=== PATIENT | male | born 1970 | race Caucasian/White ===

== ENCOUNTER 2019-03-15 15:33 | Outpatient (CLI) | payer BC | END 2019-03-15 15:34 | disposition short-term general hospital (02) | LOC: EMS 15:33 | PROVIDERS: ATTEND Surgery | DX: S69.92XA Unspecified injury of left wrist, hand and finger(s), initial encounter (principal); M25.512 Pain in left shoulder; V49.40XA Driver injured in collision with unspecified motor vehicles in traffic accident, initial encounter; Y92.413 State road as the place of occurrence of the external cause | CPT/HCPCS: A0425; A0429 ==

== ENCOUNTER 2022-12-23 12:22 | Outpatient (CLI) | payer MEDICARE ==
--- NOTE | 2022-12-23 15:00 | XRAY Report ---
PROCEDURE: Chest 2 View X-Ray INDICATIONS: CHEST PAIN TECHNIQUE: 2 views of the chest were acquired. COMPARISON: None. FINDINGS: Surgical changes and devices: None. Lungs and pleura: No pleural effusions or pneumothorax. Lungs are clear. Mediastinum: Mediastinal contours appear normal. Heart size is normal. Bones and chest wall: No suspicious bony lesions. Overlying soft tissues appear unremarkable. IMPRESSION: No acute cardiac pulmonary disease. Reviewed by: Mago Valencia MD on 12/23/2022 2:59 PM PDT Approved by: Mago Valencia MD on 12/23/2022 2:59 PM PDT Station ID: [id number]
== END 2022-12-23 12:23 | disposition home or self-care (01) ==
LOC: DI 12:22
PROVIDERS: ATTEND Internal Medicine
DX: R07.9 Chest pain, unspecified (principal)

== ENCOUNTER 2023-11-04 08:34 | Emergency (ER) | payer MEDICAID, MEDICARE ==
--- NOTE | 2023-11-04 09:14 | ED Physician Documentation ---
PD HPI ABD PAIN - Stated complaint Stated Complaint: ABD PX - Chief complaint Chief Complaint: General - History obtained from History obtained from: Patient - History of Present Illness Timing - onset: Today (he has recent colostomy. Awoke from sleep this morning with the ostoy bag had rubbed/fallen off, and stool output was on bedsheets. Here for help with replacement. States his water is not working at home, so now having issue with cleaning regularly.) Quality: Other (no abd pain right now.) Review of Systems Constitutional: denies: Fever, Chills GI: reports: Nausea. denies: Abdominal Pain, Vomiting, Bloody / black stool PD PAST MEDICAL HISTORY - Past Medical History Past Medical History: Yes GI: Other - Past Surgical History Past Surgical History: Yes General: Other - Present Medications Home Medications: Ambulatory Orders Medication Instructions Recorded Confirmed polyethylene glycoL 3350(BULK) 17 gm PO DAILY 11/04/23 11/04/23 [Miralax (Bulk)] predniSONE [Deltasone] 40 mg PO DAILY 11/04/23 11/04/23 - Allergies Allergies/Adverse Reactions: Allergies Allergy/AdvReac Type Severity Reaction Status Date / Time No Known Drug Allergies Allergy Verified 11/04/23 08:51 - Social History Does the pt smoke?: No Smoking Status: Never smoker Does the pt drink ETOH?: No Does the pt have substance abuse?: No - Immunizations Immunizations are current?: Yes - POLST Patient has POLST: No PD ED PE NORMAL - Vitals Vital signs reviewed: Yes - General General: Alert and oriented X 3, Well developed/nourished - Cardiac Cardiac: RRR, No murmur - Respiratory Respiratory: No respiratory distress, Clear bilaterally - Abdomen Abdomen: Normal bowel sounds, Soft, Non distended, Other (ostomy left lower abd wall with some redness of the ostomy mucosa but no surrounding redness/tenderness ) Results - Vitals Vitals: Vital Signs - 24 hr 11/04/23 11/04/23 11/04/23 08:42 11:56 12:16 Temperature 36.2 C L 36.4 C L 36.8 C Heart Rate 112 H 92 89 Respiratory 20 18 20 Rate Blood Pressure 134/95 H 134/81 H 127/81 H O2 Saturation 96 94 99 Oxygen O2 Source Room air PD Medical Decision Making - ED course Complexity details: considered differential (recent surgery for partial mayte ctomy and ostomy placement. He states was to have office appt with ostomy teaching next week. Awoke from sleep with the bag off this moring and output on bedsheets. Here for eval and help with replacement. ), d/w patient Departure - Departure Disposition: 01 Home, Self Care Clinical Impression: Encounter for ostomy care education Condition: Stable Record reviewed to determine appropriate education?: Yes Comments: Continue with the previous instructions for your ostomy. Follow-up as planned with your surgeon/primary care. Return if needed. Forms: PCP List Discharge Date/Time: 11/04/23 12:18
[2023-11-04 12:18] VITALS: BP 127/81; O2SAT 99
== END 2023-11-04 12:18 | disposition home or self-care (01) ==
LOC: EDUNIT# → ED 08:34
DX: Z43.3 Encounter for attention to colostomy (principal); R11.0 Nausea
CPT/HCPCS: 99282; 99283

== ENCOUNTER 2023-11-09 09:15 | Emergency (ER) | payer MEDICAID ==
[2023-11-09 09:31] VITALS: BP 158/87; O2SAT 97
--- NOTE | 2023-11-09 09:46 | ED Physician Documentation ---
History of Present Illness - Stated complaint Stated Complaint: CLOSTOMY BAG ASSISTANCE - Chief complaint Chief Complaint: General - Additonal information Additional information: Patient 53-year-old male presenting to the emergency department for colostomy care. Hemicolectomy performed approximately 2 weeks ago at [facility]. Since that time patient has had multiple ER visits seeking colostomy bag replacement and Reports has a health and social care teacher colostomy care. Was evaluated by home health however they report that his domicile has no running water, has evidence of severe hoarding, and is not suitable. He reports that he has follow-up with wound care and social work. He reports that he does have running water in his kitchen but not his bathroom and is seeking a friend's bathroom that he can use. He states he does not wish to be evaluated by social work, is not interested in placement,. Review of Systems Constitutional: denies: Fever Eyes: denies: Loss of vision Ears: denies: Loss of hearing Nose: denies: Rhinorrhea / runny nose Throat: denies: Dental pain / toothache Cardiac: denies: Chest pain / pressure Respiratory: denies: Dyspnea GI: denies: Abdominal Pain, Nausea, Vomiting : denies: Dysuria Skin: denies: Rash Musculoskeletal: denies: Neck pain Neurologic: denies: Generalized weakness PD PAST MEDICAL HISTORY - Past Medical History Past Medical History: Yes GI: Other - Past Surgical History Past Surgical History: Yes General: Other - Present Medications Home Medications: Ambulatory Orders Medication Instructions Recorded Confirmed polyethylene glycoL 3350(BULK) 17 gm PO DAILY 11/04/23 11/09/23 [Miralax (Bulk)] predniSONE [Deltasone] 40 mg PO DAILY 11/04/23 11/09/23 - Allergies Allergies/Adverse Reactions: Allergies Allergy/AdvReac Type Severity Reaction Status Date / Time No Known Drug Allergies Allergy Verified 11/09/23 09:31 - Social History Does the pt smoke?: No Smoking Status: Never smoker Does the pt drink ETOH?: No Does the pt have substance abuse?: No - Immunizations Immunizations are current?: Yes - POLST Patient has POLST: No PD ED PE NORMAL - Vitals Vital signs reviewed: Yes - General General: Alert and oriented X 3 - HEENT HEENT: Atraumatic - Neck Neck: Supple, no meningeal sign - Cardiac Cardiac: RRR - Respiratory Respiratory: No respiratory distress - Abdomen Abdomen: Normal bowel sounds, Soft, Non tender, Other (Colostomy in place, liquidy brown stool noted in colostomy bag.) - Rectal Rectal: Deferred - Back Back: No CVA TTP - Derm Derm: Normal color - Extremities Extremities: No deformity Results - Vitals Vitals: Vital Signs - 24 hr /02/26 09:27 Temperature 36.4 C L Heart Rate 100 Respiratory 20 Rate Blood Pressure 158/87 H O2 Saturation 97 Oxygen O2 Source Room air PD Medical Decision Making - ED course Complexity details: reviewed old records, d/w patient, other ED course: Patient 53-year-old male presenting to the emergency department for ostomy care. This is in the setting of multiple ER visits for similar reasons. Afebrile, hemodynamically stable arrival to the emergency department. Abdominal exam demonstrates a functional ostomy. No indications obstruction, perforation or other acute life-threatening or surgical emergency. Ostomy care provided here in the emergency department. Per patient statement on chart review he is currently living in a domicile that either has no running water per social work documentation or only has running water in the kitchen per his statements. There is concerned that he may be suffering from severe hoarding disorder. He reported that he had a follow-up appointment with the [facility] however when I contacted them to try to arrange for an earlier appointment and follow-up they were stated that they had attempted to get him scheduled for care however during the previous conversation with him he informed them that he was just going to "go to the ER". Follow-up appointment was made with her ostomy nurse however unfortunately ostomy services are limited at this facility and the next earliest appointment is going to be November 22 at 9:30 AM. Overall I am a little concerned that the patient does not understand the long- term nature of his ostomy, the necessity for proper ostomy care as well as the appropriateness of his current living situation. He was offered social work evaluation which he adamantly declines. He demonstrates decisional capacity as well as a modest if not reasonable understanding of the potential consequences of inadequate management of his ostomy. Ultimately discharged with follow-[facility] for November 22 at 9:30 AM. Departure - Departure Disposition: 01 Home, Self Care Clinical Impression: Encounter for ostomy care education Instructions: Ostomy Pouch Empty, Colostomy Pouch Change, Ostomy Pouch Change Dc Comments: Thank you for allowing us to care for you today at [facility]. Brett, we have seen you multiple times in the emergency department for care of your ostomy. You were given education here today similar to the education that was provided during her previous ER visits. You will also find more education on how to manage your ostomy in your discharge packet. I have discussed your care directly with [facility] wound [facility] and [facility]. You have a follow-up appointment at this facility November 22 at 9:30 AM. Address: [address] [place] [id number] Please keep this appointment as the facility only has limited ostomy care services that are only available on Wednesdays. I know we discussed evaluation by social work here in the emergency department and you have declined this intervention. Please continue to work with your primary care doctor and health and social care teacher concerning your living situation. I am concerned that your current living environment may be inappropriate to meet your medical needs. If it anytime you have new or worsening symptoms please not hesitate to return. Forms: PCP List
== END 2023-11-09 11:08 | disposition home or self-care (01) ==
LOC: ED 09:15
DX: Z43.3 Encounter for attention to colostomy (principal)
CPT/HCPCS: 99282; 99284